=== PATIENT | male | born 1975 | race Caucasian/White ===

== ENCOUNTER 2016-11-17 13:48 | Emergency (ER) | payer OTHER ==
--- NOTE | 2016-11-17 14:18 | ED ORDER SUMMARY ---
..... Patient: JACKIE DESAI OrderSheet [facility] VisitID: [id number] [address] [place] [address] 41y, M Registration Date/Time: 11/17/2016 ORDER SHEET Weight: 99.7 kg (stated) Allergies: LIsinopril GENERAL ORDERS: Knee Immobilizer (14:17 11/17/2016 Thomas Rachel) (14:40 Gregorio R.NHardy) MEDICATION ORDERS: IV FLUIDS: ORDER SHEET NOTES: [Electronically signed by Kymberly Jara R.N. (14:43 11/17/2016)] [Electronically signed by Marilia Mike P.A.-C (15:00 11/17/2016)] [Electronically locked/signed by Kymberly Jara R.N. (14:43 11/17/2016)]
--- NOTE | 2016-11-17 14:18 | ED CLINICAL REPORT ---
Clinical Report - Physicians/Mid Levels [facility] [address] [place] [address] 11/17/2016 13:57 Patient: JACKIE DESAI Time Seen: 1430 Nov 17 2016. Arrived- By private vehicle. Historian- patient. HISTORY OF PRESENT ILLNESS Chief Complaint: Injury to left knee. 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 The patient sustained a direct blow and twisting injury. Occurred at work. Patient is experiencing mild pain. Patient denies injury to the head or neck. 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 He reports pain worsens with movement, activity such as sitting. Reports pain improved with rest. Denies history of DVT or PE. Patient has been ambulatory. Denies any prior injury to the knee. Denies any history of gout or arthritis. The swelling has diminished.). REVIEW OF SYSTEMS The patient sustained a laceration. No tingling. He has no pain on weight bearing. All systems otherwise negative, except as recorded above. PAST HISTORY The patient has not had a prior injury to the same area. SOCIAL HISTORY Never smoker. History of drug use: marijuana. No alcohol use. PHYSICAL EXAM Vital Signs: 11/17/2016 14:11 BP: 142/76. HR: 76. RR: 20. O2 saturation: 99%. Temp: 97.6 F. Pain level now: 3/10. Head: Head atraumatic. ENT: Ears normal. Nose normal. CVS: Normal heart rate and rhythm. Heart sounds normal. Respiratory: No respiratory distress. Breath sounds normal. Abdomen: No visible injury. Back: Normal inspection. Extremities: Left thigh. No tenderness or swelling. Left knee: mild tenderness located in the lateral joint line. No joint effusion. No swelling, laceration, ecchymosis or puncture wound. No limitation in ROM. Left leg. No tenderness or laceration. Left ankle. No erythema or laceration. Neuro, Vascular and Tendons: Vascular status intact. Motor intact. Gait: Normal gait. Neuro: Oriented X 3. No motor deficit. No sensory deficit. PROGRESS AND PROCEDURES PROCEDURES (knee immobolizer). Course of Care: Patient here in the ER is very stable. No distress. Able to ambulate. No effusion or swelling. No signs of septic arthritis. No prior injury to the area. Pain reproduced with steps/ movement No suspicion for fracture, as incident occurred 2 weeks previously and pt has been ambulatory. Patient was given an immobilizer as needed, will require follow-up with orthopedics. Pain is reproducible and worsens with movement. DVT not suspected. Patient is stable. Patient/family counseled. Disposition: Discharged. CLINICAL IMPRESSION Sprain of the lateral collateral ligament of the left knee. INSTRUCTIONS Apply ice. Wear knee immobilizer for one weeks. Elevate affected areas above chest level. Return to work (11/18/2016 LIGHT DUTY, no lifting > 15 lbs, to be utilitized in seated position primarily). ([facility] ortho: [phone]). OTC Medications: Take OTC medications according to label instructions. Available over the counter. Acetaminophen (available over the counter): take according to label instructions. Motrin (available over the counter): take according to label instructions. [facility] [address] [facility] [address] (Electronically signed by Marilia Mike P.A.-C 11/17/2016 15:00)
--- NOTE | 2016-11-17 14:18 | ED ORDER SUMMARY ---
..... Patient: JACKIE DESAI OrderSheet [facility] VisitID: [id number] [address] [place] [address] 41y, M Registration Date/Time: 11/17/2016 ORDER SHEET Weight: 99.7 kg (stated) Allergies: LIsinopril GENERAL ORDERS: Knee Immobilizer (14:17 11/17/2016 Thomas Rachel) (14:40 Gregorio R.NHardy) MEDICATION ORDERS: IV FLUIDS: ORDER SHEET NOTES: [Electronically signed by Kymberly Jara R.N. (14:43 11/17/2016)] [Electronically signed by Marilia Mike P.A.-C (15:00 11/17/2016)] [Electronically locked/signed by Kymberly Jara R.N. (14:43 11/17/2016)]
--- NOTE | 2016-11-17 14:18 | ED CLINICAL REPORT ---
Clinical Report - Physicians/Mid Levels [facility] [address] [place] [address] 11/17/2016 13:57 Patient: JACKIE DESAI Time Seen: 1430 Nov 17 2016. Arrived- By private vehicle. Historian- patient. HISTORY OF PRESENT ILLNESS Chief Complaint: Injury to left knee. 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 The patient sustained a direct blow and twisting injury. Occurred at work. Patient is experiencing mild pain. Patient denies injury to the head or neck. 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 He reports pain worsens with movement, activity such as sitting. Reports pain improved with rest. Denies history of DVT or PE. Patient has been ambulatory. Denies any prior injury to the knee. Denies any history of gout or arthritis. The swelling has diminished.). REVIEW OF SYSTEMS The patient sustained a laceration. No tingling. He has no pain on weight bearing. All systems otherwise negative, except as recorded above. PAST HISTORY The patient has not had a prior injury to the same area. SOCIAL HISTORY Never smoker. History of drug use: marijuana. No alcohol use. PHYSICAL EXAM Vital Signs: 11/17/2016 14:11 BP: 142/76. HR: 76. RR: 20. O2 saturation: 99%. Temp: 97.6 F. Pain level now: 3/10. Head: Head atraumatic. ENT: Ears normal. Nose normal. CVS: Normal heart rate and rhythm. Heart sounds normal. Respiratory: No respiratory distress. Breath sounds normal. Abdomen: No visible injury. Back: Normal inspection. Extremities: Left thigh. No tenderness or swelling. Left knee: mild tenderness located in the lateral joint line. No joint effusion. No swelling, laceration, ecchymosis or puncture wound. No limitation in ROM. Left leg. No tenderness or laceration. Left ankle. No erythema or laceration. Neuro, Vascular and Tendons: Vascular status intact. Motor intact. Gait: Normal gait. Neuro: Oriented X 3. No motor deficit. No sensory deficit. PROGRESS AND PROCEDURES PROCEDURES (knee immobolizer). Course of Care: Patient here in the ER is very stable. No distress. Able to ambulate. No effusion or swelling. No signs of septic arthritis. No prior injury to the area. Pain reproduced with steps/ movement No suspicion for fracture, as incident occurred 2 weeks previously and pt has been ambulatory. Patient was given an immobilizer as needed, will require follow-up with orthopedics. Pain is reproducible and worsens with movement. DVT not suspected. Patient is stable. Patient/family counseled. Disposition: Discharged. CLINICAL IMPRESSION Sprain of the lateral collateral ligament of the left knee. INSTRUCTIONS Apply ice. Wear knee immobilizer for one weeks. Elevate affected areas above chest level. Return to work (11/18/2016 LIGHT DUTY, no lifting > 15 lbs, to be utilitized in seated position primarily). ([facility] ortho: [phone]). OTC Medications: Take OTC medications according to label instructions. Available over the counter. Acetaminophen (available over the counter): take according to label instructions. Motrin (available over the counter): take according to label instructions. [facility], , [address] [facility] [address] (Electronically signed by Marilia Mike P.A.-C 11/17/2016 15:00)
--- NOTE | 2016-11-17 14:18 | ED NURSING NOTES ---
Clinical Report - Nurses [facility] [address] [place] [address] 11/17/2016 13:57 Patient: JACKIE DESAI TRIAGE Triage time 1411. Acuity: LEVEL 4. Chief Complaint: INJURY TO LEFT KNEE. KYLAH COMA SCORE: [place] Coma Scale: 15- eyes open spontaneously (4); best verbal response- oriented x 4 (5); best motor response- obeys commands (6). --14:18 Kymberly Jara R.N. 14:11 11/17/16. BP: 142/76. HR: 76. RR: 20 (unlabored). O2 saturation: 99% on room air. Temp: 97.6 F (oral). Pain level now: 10/10. --14:18 Kymberly Jara R.N. Weight: 99.7 kg stated. Height/Length: 76 inches Per Patient. BMI: 26.8. --14:10 Kymberly Jara R.N. Medications Albuterol Sulfate ER Oral. Atenolol Oral. --14:14 Kymberly Jara R.N. Omeprazole Oral. --14:17 Kymberly Jara R.N. ALPRAZolam Oral. --14:17 Kymberly Jara R.N. Ibuprofen Oral. --14:17 Kymberly Jara R.N. Allergies LIsinopril. --14:14 Kymberly Jara R.N. History Arrived by private vehicle. Historian: patient. ( pt c/o left knee pain/injury at work 2-3 weeks ago. pt states he's elevated and iced it and continues to have pain.). This occurred (2-3 weeks ago). Occurred at work. 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 He has had trouble walking. 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 (elevate,). SOCIAL HX: Never smoker. History of drug use: marijuana. No alcohol use. ABUSE ASSESSMENT: No report of abuse. FALL RISK ASSESSMENT: Fall risk assessment completed. No fall risk identified. NUTRITIONAL RISK ASSESSMENT: The nutritional risk assessment revealed no deficiencies. FUNCTIONAL ASSESSMENT: Functional assessment: no impairments noted. LEARNING NEEDS ASSESSMENT: The learning needs assessment revealed no barriers. SKIN INTEGRITY ASSESSMENT: Skin integrity risk assessment completed. No skin integrity risk identified. --14:18 Kymberly Jara R.N. PROBLEMS: Hypokalemia. Palpitations. Lung Disease. Angioedema. Immunizations. Alcohol Withdrawal. Hepatitis. Gastritis. Peptic Ulcer Disease. Anxiety Reaction. Back Pain. Asthma. Hypertension. --14:14 Kymberly Jara R.N. ADDITIONAL SURGERIES: Hernia Repair. --14:14 Kymberly Jara R.N. Interventions ID band on patient. To treatment room. --14:18 Kymberly Jara R.N. PHYSICAL ASSESSMENT 14:15. Ambulatory to room. GENERAL / NEURO / PSYCH: Oriented X 4. Alert. Appears in no acute distress. EXTREMITIES: Capillary refill is less than 2 seconds in the extremities. Extremity pulses are within normal limits. Limping gait. Neuro-vascular status intact to the extremity. Left knee: (pain to lateral side of knee). SKIN: Skin intact. Skin is warm and dry. --14:20 Kymberly Jara R.N. NURSING PROGRESS NOTES 14:11. Extremity elevated. Patient gowned. Two patient identifiers checked. Call light placed in reach. Side rails up x 1. Bed placed in lowest position. Brakes of bed on. Patient ready for evaluation. --14:19 Kymberly Jara R.N. 14:35 knee immobilizer placed by [facility]. --14:41 Kymberly Jara R.N. correction to prior entry - immobilizer placed to left knee. --14:41 Kymberly Jara R.N. DISPOSITION / DISCHARGE Departure time: 1440. Condition at departure: unchanged. No learning barriers present. Discharge instructions provided and reviewed with the patient. Patient verbalized understanding. Written instructions provided in Croatian. The patient was discharged by the physician casting assistant. He was discharged home and accompanied by family. He left the Emergency Department ambulatory and via private vehicle. Family member driving. Medication list reviewed and validated with the patient. --14:40 Kymberly Jara R.N. 14:39 11/17/16. BP: deferred. HR: deferred. RR: deferred. O2 saturation: deferred. Temp: deferred. Pain level now deferred. --14:40 Kymberly Jara R.N. Locked/Released at 11/17/2016 14:43 by Kymberly Jara R.N.
--- NOTE | 2016-11-17 14:18 | ED NURSING NOTES ---
Clinical Report - Nurses [facility] [address] [place] [address] 11/17/2016 13:57 Patient: JACKIE DESAI TRIAGE Triage time 1411. Acuity: LEVEL 4. Chief Complaint: INJURY TO LEFT KNEE. KYLAH COMA SCORE: [place] Coma Scale: 15- eyes open spontaneously (4); best verbal response- oriented x 4 (5); best motor response- obeys commands (6). --14:18 Kymberly Jara R.N. 14:11 11/17/16. BP: 142/76. HR: 76. RR: 20 (unlabored). O2 saturation: 99% on room air. Temp: 97.6 F (oral). Pain level now: 10/10. --14:18 Kymberly Jara R.N. Weight: 99.7 kg stated. Height/Length: 76 inches Per Patient. BMI: 26.8. --14:10 Kymberly Jara R.N. Medications Albuterol Sulfate ER Oral. Atenolol Oral. --14:14 Kymberly Jara R.N. Omeprazole Oral. --14:17 Kymberly Jara R.N. ALPRAZolam Oral. --14:17 Kymberly Jara R.N. Ibuprofen Oral. --14:17 Kymberly Jara R.N. Allergies LIsinopril. --14:14 Kymberly Jara R.N. History Arrived by private vehicle. Historian: patient. ( pt c/o left knee pain/injury at work 2-3 weeks ago. pt states he's elevated and iced it and continues to have pain.). This occurred (2-3 weeks ago). Occurred at work. 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 He has had trouble walking. 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 (elevate,). SOCIAL HX: Never smoker. History of drug use: marijuana. No alcohol use. ABUSE ASSESSMENT: No report of abuse. FALL RISK ASSESSMENT: Fall risk assessment completed. No fall risk identified. NUTRITIONAL RISK ASSESSMENT: The nutritional risk assessment revealed no deficiencies. FUNCTIONAL ASSESSMENT: Functional assessment: no impairments noted. LEARNING NEEDS ASSESSMENT: The learning needs assessment revealed no barriers. SKIN INTEGRITY ASSESSMENT: Skin integrity risk assessment completed. No skin integrity risk identified. --14:18 Kymberly Jara R.N. PROBLEMS: Hypokalemia. Palpitations. Lung Disease. Angioedema. Immunizations. Alcohol Withdrawal. Hepatitis. Gastritis. Peptic Ulcer Disease. Anxiety Reaction. Back Pain. Asthma. Hypertension. --14:14 Kymberly Jara R.N. ADDITIONAL SURGERIES: Hernia Repair. --14:14 Kymberly Jara R.N. Interventions ID band on patient. To treatment room. --14:18 Kymberly Jara R.N. PHYSICAL ASSESSMENT 14:15. Ambulatory to room. GENERAL / NEURO / PSYCH: Oriented X 4. Alert. Appears in no acute distress. EXTREMITIES: Capillary refill is less than 2 seconds in the extremities. Extremity pulses are within normal limits. Limping gait. Neuro-vascular status intact to the extremity. Left knee: (pain to lateral side of knee). SKIN: Skin intact. Skin is warm and dry. --14:20 Kymberly Jara R.N. NURSING PROGRESS NOTES 14:11. Extremity elevated. Patient gowned. Two patient identifiers checked. Call light placed in reach. Side rails up x 1. Bed placed in lowest position. Brakes of bed on. Patient ready for evaluation. --14:19 Kymberly Jara R.N. 14:35 knee immobilizer placed by [facility]. --14:41 Kymberly Jara R.N. correction to prior entry - immobilizer placed to left knee. --14:41 Kymberly Jara R.N. DISPOSITION / DISCHARGE Departure time: 1440. Condition at departure: unchanged. No learning barriers present. Discharge instructions provided and reviewed with the patient. Patient verbalized understanding. Written instructions provided in [place]. The patient was discharged by the physician geological survey field assistant. He was discharged home and accompanied by family. He left the Emergency Department ambulatory and via private vehicle. Family member driving. Medication list reviewed and validated with the patient. --14:40 Kymberly Jara R.N. 14:39 11/17/16. BP: deferred. HR: deferred. RR: deferred. O2 saturation: deferred. Temp: deferred. Pain level now deferred. --14:40 Kymberly Jara R.N. Locked/Released at 11/17/2016 14:43 by Kymberly Jara R.N.
--- NOTE | 2016-11-17 15:01 | ED MAR SUMMARY ---
..... Medication Administration Record [facility] [address] [place], [place] [id number] Patient: JACKIE DESAI Visit ID: [id number] 41y, M Weight: 99.7 kg Height/Length: 76 in BMI: 26.8 ALLERGIES: LIsinopril
--- NOTE | 2016-11-17 15:01 | ED DISCHARGE INSTRUCTIONS ---
Patient: JACKIE DESAI General Instructions [facility] VisitID: [id number] [address] [place] [address] 41y, M Registration Date/Time: 11/17/2016 Sprain of the lateral collateral ligament of the left knee. INSTRUCTIONS Apply ice. Wear knee immobilizer for one weeks. Elevate affected areas above chest level. Return to work (11/18/2016 LIGHT DUTY, no lifting > 15 lbs, to be utilitized in seated position primarily). ([facility] orth[facility]: [phone]). OTC Medications: Take OTC medications according to label instructions. Available over the counter. Acetaminophen (available over the counter): take according to label instructions. Motrin (available over the counter): take according to label instructions. Follow-up with: [facility], , [address] [place], [address] ADDITIONAL INFORMATION Sprain, Knee A sprain is an injury to the ligaments or capsule that holds a joint together. There are no broken bones. Most sprains take three to six weeks to heal. If the ligament is completely torn (severe sprain), it can take months to recover from. Most knee sprains are treated with a splint, knee immobilizer or elastic wrap for support. Severe sprains may require surgery. Home care The following guidelines will help you care for your injury at home: Stay off the injured leg as much as possible until you can walk on it without pain. If you have a lot of pain with walking, crutches or a walker may be prescribed. (These can be rented or purchased at many pharmacies and surgical or orthopedic supply stores). Follow your doctor's advice regarding when to begin bearing weight on that leg. Keep your leg elevated to reduce pain and swelling. When sleeping, place a pillow under the injured leg. When sitting, support the injured leg so it is level with your waist. This is very important during the first 48 hours. Apply an ice pack (ice cubes in a plastic bag, wrapped in a towel) over the injured area for 20 minutes every 12 hours the first day. You can place the ice pack directly over the splint. If a Velcro knee immobilizer was applied, you can open this to apply the ice pack directly to the knee. Continue with ice packs 34 times a day for the next two days, then as needed for the relief of pain and swelling. You may use acetaminophen or ibuprofen to control pain, unless another pain medicine was prescribed. If you have chronic liver or kidney disease or ever had a stomach ulcer or GI bleeding, talk with your doctor before using these medicines. If you were given a splint, keep it completely dry at all times. Bathe with your splint out of the water, protected with a large plastic bag, rubber-banded at the top end. If a fiberglass splint gets wet, you can dry it with a hair-dryer. If you have a Velcro knee immobilizer, you can remove this to bathe, unless told otherwise. Follow-up care Follow up with your doctor as advised. Any X-rays you had today dont show any broken bones, breaks, or fractures. Sometimes fractures dont show up on the first X-ray. Bruises and sprains can sometimes hurt as much as a fracture. These injuries can take time to heal completely. If your symptoms dont improve or they get worse, talk with your doctor. You may need a repeat X-ray. When to seek medical care Get prompt medical attention if any of the following occur: The plaster cast or splint becomes wet or soft The fiberglass cast or splint remains wet for more than 24 hours Pain or swelling increases Toes become cold, blue, numb or tingly Knee Immobilizer A KNEE IMMOBILIZER is used to provide support and limit movement of the knee. This will make you more comfortable as your injury heals. Home Use: 1) Unless told otherwise, the knee brace should be worn whenever you are out of bed. You may wear it in bed while asleep for the first few nights or until the pain starts to go away. Otherwise, remove the brace at night to avoid muscle stiffness from lack of joint movement. 2) You can open the velcro brace to dress, bathe and apply ice packs as directed. Get Prompt Medical Attention if any of the following occur: -- Worsening pain in the knee -- Weakness or numbness or tingling in the foot -- Increased swelling, redness or warmth of the knee joint You have been given the following additional information: Knee Sprain Knee Immobilizer Return to work (11/18/2016 LIGHT DUTY, no lifting > 15 lbs, to be utilitized in seated position primarily). (Electronically signed by Marilia Mike P.A.-C 11/17/2016 15:00)
--- NOTE | 2016-11-17 15:01 | ED MED RECONCILIATION SUMMARY ---
Patient: JACKIE DESAI Medication Reconciliation Report [facility] VisitID: [id number] [address] [place] [address] 41y, M Registration Date/Time: 11/17/2016 Weight: 99.7 kg Height/Length: 76 in. BMI: 26.8 ALLERGIES: LIsinopril The patient's Home Medications are listed below: THE FOLLOWING MEDICATIONS NEED TO BE RECONCILED: Albuterol Sulfate ER Oral ALPRAZolam Oral Atenolol Oral Ibuprofen Oral Omeprazole Oral The source(s) of the original Home Medication information: Not obtained. The following Medications were given to the patient in the Emergency Department: None. The following Medications were prescribed to the patient: Take OTC medications according to label instructions. Available over the counter. -- Marilia Mike, P.A.-C Acetaminophen (available over the counter): take according to label instructions. -- Marilia Mike, P.A.-C Motrin (available over the counter): take according to label instructions. -- Marilia Mike, P.A.-C
--- NOTE | 2016-11-17 15:01 | ED MAR SUMMARY ---
..... Medication Administration Record [facility] [address] [place], [place] [id number] Patient: JACKIE DESAI Visit ID: [id number] 41y, M Weight: 99.7 kg Height/Length: 76 in BMI: 26.8 ALLERGIES: LIsinopril
--- NOTE | 2016-11-17 15:01 | ED MED RECONCILIATION SUMMARY ---
Patient: JACKIE DESAI Medication Reconciliation Report [facility] VisitID: [id number] [address] [place] [address] 41y, M Registration Date/Time: 11/17/2016 Weight: 99.7 kg Height/Length: 76 in. BMI: 26.8 ALLERGIES: LIsinopril The patient's Home Medications are listed below: THE FOLLOWING MEDICATIONS NEED TO BE RECONCILED: Albuterol Sulfate ER Oral ALPRAZolam Oral Atenolol Oral Ibuprofen Oral Omeprazole Oral The source(s) of the original Home Medication information: Not obtained. The following Medications were given to the patient in the Emergency Department: None. The following Medications were prescribed to the patient: Take OTC medications according to label instructions. Available over the counter. -- Marilia Mike, P.A.-C Acetaminophen (available over the counter): take according to label instructions. -- Marilia Mike, P.A.-C Motrin (available over the counter): take according to label instructions. -- Marilia Mike, P.A.-C
--- NOTE | 2016-11-17 15:01 | ED DISCHARGE INSTRUCTIONS ---
Patient: JACKIE DESAI General Instructions [facility] VisitID: [id number] [address] [place] [place] [address] 41y, M Registration Date/Time: 11/17/2016 Sprain of the lateral collateral ligament of the left knee. INSTRUCTIONS Apply ice. Wear knee immobilizer for one weeks. Elevate affected areas above chest level. Return to work (11/18/2016 LIGHT DUTY, no lifting > 15 lbs, to be utilitized in seated position primarily). ([facility]: [phone]). OTC Medications: Take OTC medications according to label instructions. Available over the counter. Acetaminophen (available over the counter): take according to label instructions. Motrin (available over the counter): take according to label instructions. Follow-up with: [facility], , [address] [place], [address] ADDITIONAL INFORMATION Sprain, Knee A sprain is an injury to the ligaments or capsule that holds a joint together. There are no broken bones. Most sprains take three to six weeks to heal. If the ligament is completely torn (severe sprain), it can take months to recover from. Most knee sprains are treated with a splint, knee immobilizer or elastic wrap for support. Severe sprains may require surgery. Home care The following guidelines will help you care for your injury at home: Stay off the injured leg as much as possible until you can walk on it without pain. If you have a lot of pain with walking, crutches or a walker may be prescribed. (These can be rented or purchased at many pharmacies and surgical or orthopedic supply stores). Follow your doctor's advice regarding when to begin bearing weight on that leg. Keep your leg elevated to reduce pain and swelling. When sleeping, place a pillow under the injured leg. When sitting, support the injured leg so it is level with your waist. This is very important during the first 48 hours. Apply an ice pack (ice cubes in a plastic bag, wrapped in a towel) over the injured area for 20 minutes every 12 hours the first day. You can place the ice pack directly over the splint. If a Velcro knee immobilizer was applied, you can open this to apply the ice pack directly to the knee. Continue with ice packs 34 times a day for the next two days, then as needed for the relief of pain and swelling. You may use acetaminophen or ibuprofen to control pain, unless another pain medicine was prescribed. If you have chronic liver or kidney disease or ever had a stomach ulcer or GI bleeding, talk with your doctor before using these medicines. If you were given a splint, keep it completely dry at all times. Bathe with your splint out of the water, protected with a large plastic bag, rubber-banded at the top end. If a fiberglass splint gets wet, you can dry it with a hair-dryer. If you have a Velcro knee immobilizer, you can remove this to bathe, unless told otherwise. Follow-up care Follow up with your doctor as advised. Any X-rays you had today dont show any broken bones, breaks, or fractures. Sometimes fractures dont show up on the first X-ray. Bruises and sprains can sometimes hurt as much as a fracture. These injuries can take time to heal completely. If your symptoms dont improve or they get worse, talk with your doctor. You may need a repeat X-ray. When to seek medical care Get prompt medical attention if any of the following occur: The plaster cast or splint becomes wet or soft The fiberglass cast or splint remains wet for more than 24 hours Pain or swelling increases Toes become cold, blue, numb or tingly Knee Immobilizer A KNEE IMMOBILIZER is used to provide support and limit movement of the knee. This will make you more comfortable as your injury heals. Home Use: 1) Unless told otherwise, the knee brace should be worn whenever you are out of bed. You may wear it in bed while asleep for the first few nights or until the pain starts to go away. Otherwise, remove the brace at night to avoid muscle stiffness from lack of joint movement. 2) You can open the velcro brace to dress, bathe and apply ice packs as directed. Get Prompt Medical Attention if any of the following occur: -- Worsening pain in the knee -- Weakness or numbness or tingling in the foot -- Increased swelling, redness or warmth of the knee joint You have been given the following additional information: Knee Sprain Knee Immobilizer Return to work (11/18/2016 LIGHT DUTY, no lifting > 15 lbs, to be utilitized in seated position primarily). (Electronically signed by Marilia Mike P.A.-C 11/17/2016 15:00)
== END 2016-11-17 14:40 | disposition home or self-care (01) ==
LOC: ED SRH 13:48
DX: S83.422A Sprain of lateral collateral ligament of left knee, initial encounter (principal); X50.0XXA Overexertion from strenuous movement or load, initial encounter; Y93.9 Activity, unspecified; Y99.0 Civilian activity done for income or pay; I10 Essential (primary) hypertension; J45.909 Unspecified asthma, uncomplicated; Z79.899 Other long term (current) drug therapy; Z88.8 Allergy status to other drugs, medicaments and biological substances